=== PATIENT | female | born 1955 | race Caucasian/White ===

== ENCOUNTER 2023-07-31 06:01 | Day surgery (SDC) | payer MEDICARE, BC, SELFPAY ==
[2023-07-31] VITALS (17 sets, daily range): BP systolic 79–120; BP diastolic 48–81; PULSE 53–65; RESP 10–18; TEMP 36.2–36.4; O2SAT 93–97; BMI 30.4
[2023-07-31] MEDS: CELECOXIB 200 MG CAPSULE PO (06:24)
[2023-07-31] MEDS: OXYCODONE (CR) 10 MG TAB.ER.12H PO (06:24)
[2023-07-31] MEDS: ACETAMINOPHEN 500 MG TABLET 1000 MG PO (06:24)
[2023-07-31] MEDS: LACTATED RINGERS 1000 ML 1,000 ML 100 ML IV ×2 (06:25→08:16)
--- NOTE | 2023-07-31 07:05 | SUR.PREOP ---
TIME?OUT:?05 PT/RN/MDA?VERIFICATION?OF?SURGICAL?SITE,?PROCEDURE,?AND?CONSENT OBTAINED?PRIOR?TO?INVASIVE?PROCEDURE.
[2023-07-31] MEDS: CEFAZOLIN 2 GM INJ IVP (07:30)
[2023-07-31] MEDS: MIDAZOLAM HCL 1 MG/ML inj IVP (07:30)
[2023-07-31] MEDS: fentaNYL 100 MCG/2 ML inj IVP (07:30)
[2023-07-31] MEDS: TRANEXAMIC ACID 100 MG/ML INJ 1000 MG IV (07:32)
--- NOTE | 2023-07-31 07:52 | SUR.OPER ---
PATIENT QUESTIONS ANSWERED SATISFACTORILY PREOPERATIVELY.? PATIENT BROUGHT TO OR #2 PER CART AFTER ADMINISTRATION OF A BLOCK.? Patient positioned supine on OR #2 bed.? The perioperative?team supported arms bilaterally on arm boards.? Final approval of positioning by surgeon.?
--- NOTE | 2023-07-31 08:32 | CRLHL7_ITS ---
For Patients: As a result of the Cures Act, medical imaging exams and procedure reports are released immediately into your electronic medical record. You may view this report before your referring provider. If you have questions, please contact your health care provider. INDICATION : Follow-up a left total knee arthroplasty. TECHNIQUE: Two portable postoperative images of the left knee. FINDINGS: Left knee arthroplasty. Patellar resurfacing. The components are adequately aligned and well seated. Air within the joint space and soft tissues related to the surgery. IMPRESSION: Postsurgical change from a left total knee arthroplasty. The components are adequately aligned and well seated. Dictated by Raheem Marks MD @ 07/31/2023 9:35:23 AM (Electronically Signed)
--- NOTE | 2023-07-31 08:35 | P.ORPRC_ITS ---
Procedure Note Date of procedure: 07/31/23 Procedure: PREOPERATIVE DIAGNOSIS: Left knee osteoarthritis POSTOPERATIVE DIAGNOSIS: Left knee osteoarthritis NAME OF OPERATION: Left total knee arthroplasty SURGEON: Taurus Joseph MD BI APPLICATION DEVELOPER: LAURI Rai ANESTHESIA: Spinal ESTIMATED BLOOD LOSS: 0 mL COMPLICATIONS: None SPECIMENS: None DRAINS: None PREOPERATIVE ANTIBIOTICS: Ancef 2 grams IMPLANTS: 1. J&J Attune # 6 narrow posterior stabilized femur 2. # 5 fixed-bearing tibia 3. # 6 posterior stabilized, 5 mm fixed-bearing polyethylene 4. 38 patella INDICATIONS: The patient is a 68-year-old with a longstanding history of severe, unrelenting left knee pain secondary to end-stage (grade IV) left knee osteoarthritis. Despite appropriate nonoperative management, including activity modification, anti-inflammatories, uwhy-xov-etzklnw pain medication, bracing, physical therapy, and injections they continue to have pain and disability. Operative intervention was offered. The risks, benefits and expected outcomes were discussed in detail. These includ ed but were not limited to: Infection, bleeding, injury to blood vessel or nerve, venous thromboembolism. All questions were answered to their satisfaction. Use of an administrative sales assistant was necessary throughout the case for patient positioning and safety, soft tissue retraction, and closure. PROCEDURE: Spinal anesthesia was administered. The patient was placed supine on the operating table. The administrative sales assistant made sure the patient was positioned appropriately. The lower extremity was prepped and draped in the usual sterile fashion. The limb was exsanguinated with the Amrit bandage. The pneumatic tourniquet was inflated to 300 mmHg. A standard anterior incision was made with the knee in flexion. Subcutaneous dissection was sharply taken through fascial layer #1. Full-thickness medial and lateral flaps were elevated. The administrative sales assistant retracted the soft tissues and protected them throughout the case. A standard medial parapatellar approach was made. The patella was everted. The infrapatellar fat pad was preserved. The menisci and cruciate ligaments were sharply d?brided. Marginal osteophytes were d?brided with the rongeur. The drill was used to penetrate the femoral canal. The canal was aspirated and irrigated with pulse lavage. The intramedullary femoral guide was placed for a 5-degree valgus cut, removing 10 mm off the distal femur. The saw was used to make the cut. Whitesides line and the trans epicondylar axis were marked. The femoral sizing guide was pinned onto the distal femur. Three degrees of external rotation nicely parallels the transepicondylar axis. Pins were placed for posterior referencing. The four-in-one cutting guide was pinned onto the distal femur. The anterior, posterior, and chamfer cuts were made. The administrative sales assistant protected the collateral ligaments. The box cutting guide was pinned. The box cuts were made. The boxed trial was placed and was an excellent fit. Drill holes for the lugs were made. Attention was then turned to the proximal tibia. The extramedullary tibial guide was placed for a neutral varus/valgus cut with 5 degrees of posterior slope, removing 1 mm based off the medial tibial surface. The administrative sales assistant protected the collateral ligaments and the neurovascular bundle. The saw was used to make the cut. Trial components were placed. The knee was nicely balanced in both flexion and extension. The trial components were removed. The tray was placed in appropriate rotation, parallel to our tibial cutting pins. It was pinned by the administrative sales assistant and the drill and the punch were used. The tray was removed. The punch was used again. We placed a bone plug in the femoral canal. Attention was then turned to the patella. [place] patellar thickness was 22 mm. The lobster claw resection guide was used with the 7.5 mm david. The saw was used to make the cut. Drill holes were made by the administrative sales assistant. The trial was placed and was an excellent fit. Cancellous surfaces were irrigated with pulse lavage and thoroughly dried by the administrative sales assistant. We cemented the tibial component, then the femoral component. We impacted the 5 mm polyethylene onto the tibial tray. The knee was brought into full extension. We then cemented the patellar component. Excessive cement was removed. The cement was allowed to harden. The knee was taken through a range of motion and was found to be nicely balanced in both flexion and extension. The patella tracks centrally. The administrative sales assistant did a three minute dilute Betadine solution soak. The administrative sales assistant irrigated the wound with 3 liters of normal saline via pulse lavage. The a ssistant reapproximated the extensor mechanism with #1 Vicryl in an interrupted [id number]-uy-ixihz fashion. The administrative sales assistant then ran the extensor mechanism with a #1 PDO Stratafix. The administrative sales assistant closed the subcutaneous tissues with a 3-0 Stratafix and the skin with a running 3-0 Stratafix in a subcuticular fashion. Glue was used to seal the skin. The administrative sales assistant placed a dry dressing, MARY CARMEN stocking, and Polar Care. Sponge and needle counts were correct x2. The patient tolerated the procedure well. There were no apparent complications. They were carefully transferred to the hospital bed and taken to the postanesthesia care unit in satisfactory condition. PLAN: The patient will be mobilized with physical therapy. Aspirin will be used for DVT prophylaxis. They will be discharged to home once medically appropriate.
--- NOTE | 2023-07-31 09:15 | W.ANESCHARGE ---
Anesthesia Charges Start Date/Time Anesthesia Start Date: 07/31/23 Anesthesia Start Time: 07:19 Stop Date/Time Anesthesia Stop Date: 07/31/23 Anesthesia Stop Time: 09:14
--- NOTE | 2023-07-31 09:54 | P.NB_ITS ---
Nerve Block Nerve Block Time Seen by Provider: 07:07 Date Seen: 07/31/23 Type of block requested by surgeon for post-operative analgesia: adductor canal Side: left Time out performed: Yes Verification of patient name: Yes Verification of date of : Yes Site marking: site marked Name of person performing procedure: Larry Continuous monitoring Was continuous monitoring of O2 sat, B/P, monitoring manager, recorded every 15 minutes?: Yes Procedure Checklist: sterile prep, needles and gloves Ultrasound guided. Images saved: Yes Medications given in 5ml increments after negative aspiration: Ropivicaine %: 0.5 mL: 20 Needle gauge: 20 Decadron (mg): 10 Precedex (mcg): 25 Patient tolerated procedure well: Yes Additional comments: Needle noted adjacent to nerve Block Charges Block Charge (with Pro Fee): Femoral Nerve Use of Ultrasound Machine for Block: Yes- US Guidance/pain block
--- NOTE | 2023-07-31 09:54 | W.PM.NB ---
Nerve Block Nerve Block Time Seen by Provider: 07:07 Date Seen: 07/31/23 Type of block requested by surgeon for post-operative analgesia: geniculars Side: left Time out performed: Yes Verification of patient name: Yes Verification of date of : Yes Site marking: site marked Name of person performing procedure: Larry Continuous monitoring Was continuous monitoring of O2 sat, B/P, director of cardiac cath lab, recorded every 15 minutes?: Yes Procedure Checklist: sterile prep, needles and gloves Medications given in 5ml increments after negative aspiration: Ropivicaine %: 0.5 mL: 9 Needle gauge: 25 Patient tolerated procedure well: Yes Block Charges Block Charge (with Pro Fee): Genicular Nerve Block Use of Ultrasound Machine for Block: No
--- NOTE | 2023-07-31 09:55 | W.ANESCHARGE ---
Anesthesia Charges Start Date/Time Anesthesia Start Date: 07/31/23 Anesthesia Start Time: 07:19 Stop Date/Time Anesthesia Stop Date: 07/31/23 Anesthesia Stop Time: 09:14
[2023-07-31] MEDS: OXYCODONE 5 MG TABLET PO (10:30)
--- NOTE | 2023-07-31 11:13 | SUR.PHASEII ---
PATIENT REQUESTED 1 PAIN PILL AT 10:30. STATES SHE IS COMFORTABLE NOW AND WILL NAP FOR A WHILE BEFORE THERAPY. SHE HAS EATEN TOAST AND YOGURT AND TOLERATING WELL.
--- NOTE | 2023-07-31 12:52 | SUR.PHASEII ---
PATIENT DID GREAT WITH A TRANSFER TO WHEELCHAIR. TRANSFERED TO TOILET WITHOUT ANY PROBLEM. WILL BRING TO THERAPY AT THIS TIME.
--- NOTE | 2023-07-31 13:24 | SUR.PHASEII ---
Patient back from PT. PT states patient did well and she's cleared to go home.
== END 2023-07-31 13:26 | disposition home or self-care (01) ==
PROVIDERS: PCP Internal Medicine; Visit Provider Orthopaedic Surgery
PROC: (CPT 27447; principal; 2023-07-31 07:30)
DX: M17.12 Unilateral primary osteoarthritis, left knee (principal); G89.18 Other acute postprocedural pain
CPT/HCPCS: 27447; 01402; 64447; 64454; 73560; 76942; 97110; 97116; 97161; A9270; C1776; J0690; J1100; J2250; J2405; J2704; J3010; J7120

== ENCOUNTER 2024-08-25 07:39 | Outpatient (RCR) | payer MEDICARE, BC, SELFPAY ==
--- NOTE | 2024-08-25 09:04 | PT.OPEX ---
PT [place] [facility] Eval PT [facility] Outpatient Eval Start: 08/25/24 07:47 Freq: Status: Active Protocol: Document 08/25/24 07:48 ENM (Rec: 08/25/24 08:40 ENM [id number]) E-signed By Shasta Milner, DPT Physical Therapy Outpatient Evaluation Insurance Information Recert Due Date 11/23/24 Insurance Name Medicare B Medical Diagnosis unilateral osteoarthritis, right hip presence of artificial right hip joint right STEPHAN 09/11 Treating Diagnosis right hip pain, decreased hip ROM, muscle weakness, impaired gait Imaging Report Information These show Tonnis grade 3 bilat hip osteoarthritis with a ihmd-ob-qath medial wear pattern. There is subchondral sclerosis and subchondral cysts on the femoral side, circumferential osteophytic spurring. Referring MD Joseph Subjective Subjective Patient presents to PT for pre -op evaluation prior to R STEPHAN on 09/11. First the pain started on the side of the hip that has since subsided but she continues to have significant groin pain after sitting for longer periods of time. Was doing water aerobics and leg press at the gym but they stopped due to the hip pains. The pain can be up to a 10. Had her left knee replaced on 07/31/2023. Also had her right the knee replaced multiple years ago. Does still have some issues with the lateral side of her knee on the left side. For full information on house set up see pre-op flowsheet. Pain Comments can be up to a 10 Date of Surgery (If applicable) 09/11/24 Current Work Status Retired Objective Other/Pertinent Objective AROM L knee 0-3-128 R knee 1-0-123 hip flexion WFL with discomfort B hip IR L 25% limited R 25% limited + for pain hip ER L WFL R 25% limited + for pain strength: hip flexors 4/5 B knee extensors L 4-/5 R 4/5 gait/balance: Patient ambulates with right trunk lean, decreased knee extension B, decreased hip extension B, increased pelvic movement in transverse plane Assessment Assessment/Impression Patient is a 69 year old female presenting for pre op visit prior to R STEPHAN on DOS . They have had both of their knees replaced in the last 5 years. Noted gradual increase in right hip pain with increased activity and sitting for longer periods of time. They have necessary assistive devices already at home from previous joint replacements. and son are able to care for her after surgery. Upon assessment patient displays decreased hip ROM, decreased proximal hip strength, hip flexor tightness and impaired gait pattern. Zaynab will be seen post operatively at [facility] PT to reassess impairments that will be addressed with skilled care. They would greatly benefit from skilled PT to progress strength, ROM and ambulation post operatively for return to [facility]. Primary Functional Limitations increasing activity, sitting Plan of Care Rehabilitation Potential Good Physical Therapy Goals After pre-op visit: ? Patient will be independent with HEP ? Patient will verbalize knowledge of stair navigation and proper sequencing ? Patient will have knowledge on home adaptations and use of assistive devices post operatively ? Patient will have knowledge of edema management Coordination/Communication With Referral Source Treatment Plan/Direct Interventions Gait Training,Ice/Cold/ Vasopneumatic,Joint Mobilization,Manual Therapy, Neuromuscular Re-ed,Self-Care/ Home Management,Therapeutic Activities,Therapeutic Exercises Frequency/Duration 1x pre-op visit will be doing post op rehab at [facility] Patient Will Be Discharged From Therapy Completion of LTG(s), Independent w/HEP Evaluation Billing Untimed Code Treatment Minutes 19 Complexity Low Certification Information Initial Certification Date 08/25/24 Ending Certification Date 11/23/24 Provider Signature Required Yes Provider Signature Shows Agreement With POC & Medical Necessity Physician NPI Number Write NPI# Here Physician Comment/Change : Physician Signature & Date Requested Please Sign/Date Here
== END 2024-12-23 23:59 | disposition home or self-care (01) ==
PROVIDERS: PCP Internal Medicine; Visit Provider Orthopaedic Surgery
DX: M16.11 Unilateral primary osteoarthritis, right hip (principal); Z96.641 Presence of right artificial hip joint; Z74.09 Other reduced mobility; Z51.89 Encounter for other specified aftercare
CPT/HCPCS: 97110; 97161

== ENCOUNTER 2024-09-11 05:59 | Day surgery (SDC) | payer MEDICARE, BC, SELFPAY ==
[2024-09-11] VITALS (21 sets, daily range): BP systolic 89–130; BP diastolic 58–89; PULSE 52–74; RESP 16; TEMP 36.1–36.6; O2SAT 94–98; BMI 31.1
--- OUTSIDE RECORDS SUMMARY | 2024-09-11 06:02 | XMS_ITS | Clinical Summary ---
Author Organization [facility] Address [place], [place] [address] Care Team Providers Care Apartment Maintenance Name Role Phone Emma Moffett MD Primary Care Provider [phone] Allergies No known active allergies Medications naproxen (ALEVE) 220 mg tabletIndication s:Hip pain, right Take 1 Tablet (220 mg) by mouth 2 times daily if needed for Pain. 0 11/29/2022 Active Active Problems Problem Noted Date Diagnosed Date Osteopenia of multiple sites 07/19/2024 Overview (07/19/2024): 11/2022 DXA scan: lowest T-score -1.9 Elevated hemoglobin 07/17/2023 Primary osteoarthritis involving multiple joints 11/29/2022 Prediabetes 11/29/2022 Overview (07/16/2023): HEMOGLOBIN A1C SCREENING (%) Date Value 11/29/2022 6.3 Hx of colonic polyps Resolved Problems Problem Noted Date Diagnosed Date Resolved Date Hyperplastic colon polyp 03/06/2012 Symptomatic states associate d with artificial menopause 02/27/2007 11/14/2022 Overview (02/27/2007): Perimenopause with intermittent menometrorrhagia Encounters Date Type Department Care Team Description 08/27/2024 1:20 PM INTERNET SITE DESIGNER Office Visit [facility] [address] [facility] [place] [id number] Emma Moffett MD Pre-Op Exam (DOS: 09/11/2024) 08/27/2024 Travel 07/16/2024 10:15 AM INTERNET SITE DESIGNER Ancillary Procedure [facility] [address] [place] [address] 07/16/2024 8:20 AM INTERNET SITE DESIGNER Office Visit [facility] [address] [place] [address] Emma Moffett MD Medicare ANNUAL (subsequent) Visit 07/16/2024 Travel 06/26/2024 1:28 PM INTERNET SITE DESIGNER - 06/26/2024 11:59 PM INTERNET SITE DESIGNER Hospital Encounter [facility] [address] [place] [address] Visit for screening mammogram 06/26/2024 Travel from Last 3 Months Immunizations Name Administration Dates Next Due Hepatitis B (Adult) 02/24/1999,09/22/1998,1998 Pneumococcal Conj 20-valent (Prevnar 20) 023 Td (Age >=7 Years) 11/24/1996 Td, Preservative Free (age >= 7 Years) 7 Tdap 07/17/2023,03/06/2012 Family History Medical History Relation Name Comments Cancer Father lymphoma Cancer-breast Maternal Grandmother Other Mother scleroderma Cancer-colon Paternal Uncle Diabetes Sister 2 Relation Name Status Comments Father Maternal Grandmother Mother Paternal Uncle Sister 1 Alive Sister 2 Alive Son Alive Social History Tobacco Use Types Packs/Day Years Used Date Smoking Tobacco: Never Smokeless Tobacco: Never Tobacco Cessation:Counseling Given: No Alcohol Use Standard Drinks/Week Comments No 0 (1 standard drink = 0.6 oz pur e alcohol) PHQ-2 Answer Date Recorded PHQ-2 TOTAL SCORE 1 07/16/2024 Social Connections Answer Date Recorded Frequency of Communication with Friends and Fami ly Not on file 08/13/2021 Financial Resource Strain Answer Date R ecorded Difficulty of Paying Living Expenses Not on file 08/13/2021 Difficulty of Paying Living Expenses Not on file 08/13/2021 Comments No Sex and Gender Information Value Date Recorded Sex Assigned at Not on file Legal Sex Female 5:23 AM INTERNET SITE DESIGNER Gender Identity Not on file Sexual Orientation Not on file 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 Not on file Not on file Obstetrics History Para Term AB IAB SAB Ectopic Multiple Livin g Live Births 1 1 1 Date Outcome GA Total Labor Labor/2nd/3rd Weight Sex Type Anes PTL Riana A1 A5 Name Clin Para Comments Vaginal Last Filed Vital Signs Vital Sign Reading Time Taken Comments Blood Pressure 110/72 08/27/2024 1:27 PM INTERNET SITE DESIGNER Pulse 60 08/27/2024 1:27 PM INTERNET SITE DESIGNER Temperature 36.6 C (97.8 F) 07/16/2023 8:11 AM INTERNET SITE DESIGNER Respiratory Rate 20 08/30/2020 3:01 PM INTERNET SITE DESIGNER Oxygen Saturation 99% 07/16/2023 8:11 AM INTERNET SITE DESIGNER Inhaled Oxygen Concentration - - Weight 86.2 kg (190 lb) 08/27/2024 1:27 PM INTERNET SITE DESIGNER Height 166.5 cm (5' 5.55) 08/27/2024 1:27 PM CS T Body Mass Index 31.09 08/27/2024 1:27 PM INTERNET SITE DESIGNER Plan of Treatment Health Maintenance Due Date Last Done Comments Zoster (shingles) series for age 50+ (1 of 2) 02/03/2006 RSV vaccine for adults or (1 - Risk 60-74 years 1-dose series) 2016 Colonoscopy through age 75 09/28/202209/28, 06/13/2012, 06/13/2012, Additional history exists COVID-19 vaccine series ( season) 2024 06/16/2021, 11/04/2020, 10/06/2020 Influenza for age 65+ 04/13/2024 Mammogram for age 45-75 06/26/2025 06/26/20 24, 12/05/2022, 09/27/2020, Additional history exists Depression screening for age 12+ 07/16/2025 07/16/2024, 11/29/2022, 11/29/2022, Additional history exists Medicare Wellness for age 65+ 07/17/2025 07/16/2024, 11/29/2022 BMI (ht and wt on same day) for age 18+ 08/27/2025 08/27/2024, 07/16/2024, 07/16/2023, Additional history exists Lipids for age 45-75 07/16/2029 07/16/2024, 08/30/2020, 10/03/2018, Additional history exists Tetanus booster 07/17/2033 07/17/2023, 02/11, 02/25/2007, Additional history exists Hepatitis C screening for ag e 18-79 Completed 08/30/2020 DEXA/DXA scan for age 65+ Completed 11/29/2022 Pneumococcal series for age 50+ Completed Tdap Completed 07/17/2023, 03/06/2012 Procedures Procedure Name Priority Date/Time Associated Diagnosis Comments SCAN-ELECTROCARDIOGRA M EKG 08/27/2024 12:00 AM INTERNET SITE DESIGNER XR HIP 2 OR 3 VIEWS W PELVIS RIGHT Routine 07/16/2024 10:31 AM INTERNET SITE DESIGNER Acute thigh pain, right CBC WITH AUTO DIFFERENTIAL Routine 07/16/2024 10:02 AM INTERNET SITE DESIGNER Elevated hemoglobin (HC) BASIC METABOLIC PANEL Routine 07/16/2024 10:02 AM INTERNET SITE DESIGNER Prediabetes LIPID PANEL W REFLEX MEASURED LDL Routine 07/16/2024 10:02 AM INTERNET SITE DESIGNER Elevated cholesterol C-REACTIVE PROTEIN Routine 07/16/2024 10 :02 AM INTERNET SITE DESIGNER Chronic pain of left knee XR MAMMO DONNA BILAT SCREEN Routine 06/26/2024 1:51 PM INTERNET SITE DESIGNER Visit for screening mammogram XR DXA BONE DENSITY 2 SITES AXIAL Routine 11/29/2022 9:53 AM CDT Postmenopausal ANTI HCV Routine 08/30/2020 4:22 PM INTERNET SITE DESIGNER Encounter for hepatitis C screening test for low risk patient COLONOSCOPY 09/28/2017 11:29 AM INTERNET SITE DESIGNER from Last 3 Months or Most Recently Relevant to Health Maintenance Results * SCAN-ELECTROCARDIOGRAM EKG (08/27/2024 12:00 AM INTERNET SITE DESIGNER) us Scanner OTHER Final Result * XR HIP 2 OR 3 VIEWS W PELVIS RIGHT (07/16/2024 10:31 AM INTERNET SITE DESIGNER) Anatomical Region Laterality Modality HIPS, HIPR, Pelvis Computed Radi ography 07/16/2024 10:5 4 AM INTERNET SITE DESIGNER Impressions 07/16/2024 10:54 AM INTERNET SITE DESIGNER Moderate right hip osteoarthritis progressive when compared to the study of 11/29/2022. No acute abnormality. Dictated by Nam Burnham MD @ 07/16/2024 10:54:39 AM (Electronically Signed) Narrative 07/16/2024 10:54 AM INTERNET SITE DESIGNER For Patients: As a result of the Cures Act, medical imaging exams and procedure reports are released immediately into your electronic medical record. You may view this report before your referring provider. If you have questions, please contact your health care provider. INDICATION: Acute right thigh pain. TECHNIQUE: AP pelvis and right hip, 3 views. FINDINGS: Joint space narrowing. Marginal articular spurring. No fracture or dislocation. No lytic bone destruction. Moderate arthropathy left hip. Phleboliths low pelvis. Procedure Note Ntiin Burnham MD - 07/16/2024 For Patients: As a result of the Cures Act, medical imagingexams and procedure reports are released immediately into your electronicmedical record. You may view this report before your referring provider.If you have questions, please contact your health care provider. INDICATION: Acute right thigh pain. TECHNIQUE: AP pelvis and right hip, 3 views. FINDINGS: Joint space narrowing. Marginal articular spurring. No fracture ordislocation. No lytic bone destruction. Moderate arthropathy left hip. Phleboliths low pelvis. IMPRESSION: Moderate right hip osteoarthritis progressive when compared to the studyof 11/29/2022. No acute abnormality. Dictated by Nam Burnham MD @ 07/16/2024 10:54:39 AM (Electronically Signed) Emma Moffett MD GENERAL IMAGING Final Res ult * (ABNORMAL) LIPID PANEL W REFLEX MEASURED LDL (07/16/2024 10:02 AM INTERNET SITE DESIGNER) CHOLESTEROL, TOTAL 235(H) <200 mg/dL [facility] HDL CHOLESTEROL 82 > OR = 50 mg/dL [facility] TRIGLYCERIDES 119 <150 mg/dL [facility] LDL-CHOLESTEROL 130(H) mg/dL (calc) [facility] Comment: Reference range: <100 Desirable range <100 mg/dL for primary prevention; <70 mg/dL for patients with CHD or diabetic patients with > or = 2 CHD risk factors. LDL-C is now calculated using the Brent calculation, which is a validated novel method providing better accuracy than the Friedewald equation in the estimation of LDL-C. Amrit SS et al. ROMÁN. 2013;310(19): 2343-5091 (http://education.OUYA/faq/NOJ347) CHOL/HDLC RATIO 2.9 <5.0 (calc) [facility] NON HDL CHOLESTEROL 153(H) <130 mg/dL (calc) [facility] Comment: For patients with diabetes plus 1 major ASCVD risk factor, treating to a non-HDL-C goal of <100 mg/dL (LDL-C of <70 mg/dL) is considered a therapeutic option. Blood BLOOD SPECIMEN / Unknown 07/16/2024 10:02 AM INTERNET SITE DESIGNER 07/16/2024 10:02 AM INTERNET SITE DESIGNER Narrative [facility] - 07/17/2024 4:19 AM INTERNET SITE DESIGNER FASTING:YES FASTING: YES Emma Moffett MD CHEMISTRY Final Res ult [facility] [address] [place] [address], [facility] [address] [place] [address] * C-REACTIVE PROTEIN (07/16/2024 10:02 AM INTERNET SITE DESIGNER) Pathologist [facility] C-REACTIVE PROTEIN 3.4 <8.0 mg/L [facility] Blood BLOOD SPECIMEN / Unknown 07/16/2024 10:02 AM INTERNET SITE DESIGNER 07/16/2024 10:02 AM INTERNET SITE DESIGNER Narrative [facility] - 07/17/2024 12:46 PM INTERNET SITE DESIGNER FASTING:YES FASTING: YES Emma Moffett MD CHEMISTRY Final Res ult [facility] [address] [place] [address], [facility] [address] [place] [address] * (ABNORMAL) CBC AND DIFFERENTIAL (07/16/2024 10:02 AM INTERNET SITE DESIGNER) [facility] WHITE BLOOD CELL COUNT 6.4 3.8 - 10.8 Thousand/u L [facility] RED BLOOD CELL COUNT 5.60(H) 3.80 - 5.10 Million/uL [facility] HEMOGLOBIN 16.5(H) 11.7 - 15.5 g/dL [facility] HEMATOCRIT 50.6(H) 35.0 - 45.0 % [facility] MCV 90.4 80.0 - 100.0 fL [facility] MCH 29.5 27.0 - 33.0 pg [facility] MCHC 32.6 32.0 - 36.0 g/dL [facility] Comment: For adults, a slight decrease in the calculated MCHC value (in the range of 30 to 32 g/dL) is most likely not clinically significant; however, it should be interpreted with caution in correlation with other red cell parameters and the patient's clinical condition. RDW 13.0 11.0 - 15.0 % [facility] PLATELET COUNT 314 140 - 400 Thousand/u L [facility] MPV 10.7 7.5 - 12.5 fL [facility] ABSOLUTE NEUTROPHILS 4,013 1,500 - 7,800 cells/uL [facility] ABSOLUTE LYMPHOCYTES 1,741 850 - 3,900 cells/uL [facility] ABSOLUTE MONOCYTES 582 200 - 950 cells/uL [facility] ABSOLUTE EOSINOPHILS 32 15 - 500 cells/uL [facility] ABSOLUTE BASOPHILS 32 0 - 200 cells/uL [facility] NEUTROPHILS 62.7 % [facility] LYMPHOCYTES 27.2 % [facility] MONOCYTES 9.1 % [facility] EOSINOPHILS 0.5 % [facility] BASOPHILS 0.5 % [facility] Blood BLOOD SPECIMEN / Unknown 07/16/2024 10:02 AM INTERNET SITE DESIGNER 07/16/2024 10:02 AM INTERNET SITE DESIGNER Narrative [facility] - 07/17/2024 2:39 AM INTERNET SITE DESIGNER FASTING:YES FASTING: YES Emma Moffett MD HEMATOLOGY Final Res ult [facility] [address] [place] [address], [facility] [address] [place] [address] * (ABNORMAL) BASIC METABOLIC PANEL (07/16/2024 10:02 AM INTERNET SITE DESIGNER) [facility] GLUCOSE 112(H) 65 - 99 mg/dL [facility] Comment: Fasting reference interval For someone without known diabetes, a glucose value between 100 and 125 mg/dL is consistent with prediabetes and should be confirmed with a follow-up test. UREA NITROGEN (BUN) 17 7 - 25 mg/dL [facility] CREATININE 0.89 0.50 - 1.05 mg/dL [facility] EGFR 71 > OR = 60 mL/min/1. 73m2 [facility] BUN/CREATININE RATIO SEE NOTE: 6 - 22 (calc) [facility] Comment: Not Reported: BUN and Creatinine are within reference range. SODIUM 139 135 - 146 mmol/L [facility] POTASSIUM 4.3 3.5 - 5.3 mmol/L [facility] CHLORIDE 102 98 - 110 mmol/L [facility] CARBON DIOXIDE 27 20 - 32 mmol/L [facility] ELECTROLYTE BALANCE 10 7 - 17 mmol/L (calc) [facility] CALCIUM 9.7 8.6 - 10.4 mg/dL [facility] Blood BLOOD SPECIMEN / Unknown 07/16/2024 10:02 AM INTERNET SITE DESIGNER 07/16/2024 10:02 AM INTERNET SITE DESIGNER Narrative [facility] - 07/17/2024 4:19 AM INTERNET SITE DESIGNER FASTING:YES FASTING: YES us Emma Moffett MD CHEMISTRY Final Res ult [facility] [address] [place] [address], [facility] [address] [place] [address] * XR MAMMO DONNA BILAT SCREEN (06/26/2024 1:51 PM INTERNET SITE DESIGNER) Anatomical Region Laterality Modality BREASTS, Breast Left, Breast Right Bilateral Mammography Impressions 06/30/2024 7:38 AM INTERNET SITE DESIGNER There is no radiographic evidence for malignancy. Recommend annual mammograms. MAMMOGRAM ASSESSMENT: ACR 1 Negative PATIENTS: You will also receive a letter with your examination results in an easy to read format. If you have questions about your results, please contact your referring provider. Narrative 06/30/2024 7:38 AM INTERNET SITE DESIGNER For Patients: As a result of the Century Cures Act, medical imaging exams and procedure reports are released immediately into your electronic medical record. You may view this report before your referring provider. If you have questions, please contact your health care provider. XR MAMMO DONNA BILAT SCREEN [[id number]] CLINICAL HISTORY: This is an asymptomatic 69 y.o. patient. INDICATION FOR EXAM: Mammogram Screening. TECHNIQUE: CC & MLO views were obtained. This study was evaluated with the assistance of Computer-Aided Detection. Breast Tomosynthesis was used in interpretation. COMPARISON FILM: Yes 12/05/22 [facility] FINDINGS: There are scattered areas of fibroglandular density. There are no dominant masses, suspicious micro calcifications or areas of architectural distortion. Emma Moffett MD MAMMO Final Res ult * (ABNORMAL) XR DXA BONE DENSITY 2 SITES AXIAL (11/29/2022 9:53 AM CDT) Anatomical Region Laterality Modality Spine, HIPS, HIPL, HIPR Computed Radiography Impressions 11/30/2022 1:49 PM CDT Osteopenia. Lowest T score -1.9. Risk of fracture is not elevated. RECOMMENDATIONS: The National Osteoporosis Foundation recommends pharmacologic treatment for patients with T-scores of -2.5 or less, patients with prior history of fragility fractures, or patients with 10-year probability of greater than 3% at hips or greater than 20% of suffering major osteoporotic fractures. Recommend continued optimization of calcium and vitamin D intake through dietary means and/or supplementation and regular exercise. Repeat scan recommended in 5 years. Narrative 11/30/2022 1:49 PM CDT For Patients: Results are automatically released to your [employer] account once available, in compliance with federal regulations. This means that you may see your results before your provider has had a chance to review them. Please allow 2-3 business days for your provider to comment on the results. XR DXA Bone Mineral Density (BMD) EXAM LOCATION: [address] [address] PATIENT NAME: Zaynab Hernandez DATE OF : 1955 EXAM DATE: 11/29/2022 REQUESTING PROVIDER: Emma Moffett MD GENDER AT : female HEIGHT: 5' 6 (11/29/2022) WEIGHT: 194 lb (11/29/2022) MENOPAUSAL STATUS: Postmenopausal RACE/ETHNICITY: White RISK FACTORS: none CURRENT MEDICATION FOR BONE LOSS: NONE INDICATION: Postmenopausal COMPARISON DATE(S): None DXA scans are compared to prior studies for a patient only when the two (or more) studies were performed on the same scanner. It is not possible to compare data generated on one scanner to data from another because there are not standards in DXA equipment. This applies even if the two scanners are made by the same sas statistical programmer. PROCEDURE: Dual-energy x-ray absorptiometry performed with routine technique. Reporting is completed in the form of a T-score. The T-score represents the standard deviation from peak bone mass based on young healthy adult. A Z-score is used for diagnosis in premenopausal women, and for men under the age of 50. FINDINGS: RESULT LUMBAR SPINE L1 - L4 BMD: 1.169 g/cm2 T-Score: - 0.1 RESULTS FEMUR Left femoral neck BMD: 0.831 g/cm2 T-Score: - 1.5 Right femoral neck BMD: 0.770 g/cm2 T-Score: - 1.9 Left hip BMD: 0.879 g/cm2 T-Score: - 1.0 Right hip BMD: 0.856 g/cm2 T-Score: - 1.2 WHO criteria: Normal: T-score at or above -1 SD Osteopenia: T-score between -1.1 and -2.4 SD Osteoporosis: T-score at or below -2.5 SD FRAX RISK CALCULATION (USED FOR OSTEOPENIA ONLY): 10-year probability of major osteoporotic fracture: 17%. 10-year probability of hip fracture: 2.6%. Emma Moffett MD DEXA Final Res ult * ANTI HCV (08/30/2020 4:22 PM INTERNET SITE DESIGNER) HEPATITIS C ANTIBODY Non-React heriberto Non-React heriberto 08/30/2020 10:33 PM INTERNET SITE DESIGNER [facility] [employer] [facility] Comment:Antibodies to HCV no t detected; does not exclude the possibility of exposure to HCV. Blood BLOOD SPECIMEN / Unknown Venipuncture / Unknown 08/30/2020 4:22 PM INTERNET SITE DESIGNER 08/30/2020 4:24 PM INTERNET SITE DESIGNER Mckayla Wilburn MD SEND OUTS Final Re sult [facility] [address] [place] [address], * COLONOSCOPY (09/28/2017 11:29 AM INTERNET SITE DESIGNER) 09/28/2017 11:2 9 AM INTERNET SITE DESIGNER Narrative Transcriptions Esau Correa DO - 09/28/2017 12:02 PM CST Patient Name: Zaynab Hernandez Procedure Date: 09/28/2017 Gender: Female Date of : 1955 Admit Type: Ambulatory Procedure: Colonoscopy Proceduralist: Esau Correa MD [facility] Indications/Pre-Op Diagnosis: High risk colon cancer surveillance:Personal history of colonic polyps, Last colonoscopy5 years ago Medications: Propofol per Anesthesia Procedure Description: The patient had risks, benefits and alternatives explained to andgave informed consent. The patient had a stable cardiopulmonary status and judged an adequate candidate for conscious sedation. The colonoscope was passed through the anus and advanced to thececum, identified by appendiceal orifice and ileocecal valve. Thecolonoscopy was performed without difficulty. The patient tolerated the procedure well. The quality of the bowel preparation was good. The ileocecal valve, appendiceal orifice, and rectum were photographed. Complications: No immediate complications. Estimated Blood Loss & Specimen: Estimated blood loss: none. Specimen collected - None Findings: Non-bleeding internal hemorrhoids were found during retroflexion. The hemorrhoids were moderate, medium-sized and Grade II (internal hemorrhoids that prolapse but reduce spontaneously). Impressions/Post-Op Diagnosis: - Non-bleeding internal hemorrhoids. - No specimens collected. Recommendation: - Discharge patient to home. - Patient has a contact number available for emergencies. The signsand symptoms of potential delayed complications were discussed with the patient. Return to normal activities tomorrow. Written discharge instructions were provided to the patient. - High fiber diet. - Continue present medications. - Repeat colonoscopy in 5 years for surveillance. Esau Correa MD 09/28/2017 12:02:00 PM This report has been signed electronically. Note Initiated On: 09/28/2017 11:29 AM us Esau Correa DO PROCEDURE ORD Fi nal Result from Last 3 Months or Most Recently Relevant to Health Maintenance Insurance MEDICARE PART B [place] ONLY MEDICARE PB ONLY [facility] MEDICARE [place] [address] [employer] Care Teams Apartment Maintenance Relationship Specialty Start Date End Date Emma Moffett MD [address] [place] [address] [place] [id number] PCP - General Internal Medicine 11/30/22
[2024-09-11] MEDS: SODIUM CHLORIDE 0.9 % (FLUSH) 10 ML SYRINGE IVF (06:15)
[2024-09-11] MEDS: LACTATED RINGERS 1000 ML 1,000 ML 100 ML IV ×2 (06:15→09:42)
[2024-09-11] MEDS: CELECOXIB 200 MG CAPSULE PO (06:30)
[2024-09-11] MEDS: OXYCODONE (CR) 10 MG TAB.ER.12H PO (06:30)
[2024-09-11] MEDS: ACETAMINOPHEN 500 MG TABLET 1000 MG PO (06:30)
[2024-09-11] MEDS: MIDAZOLAM HCL 1 MG/ML inj IVP (07:03)
[2024-09-11] MEDS: fentaNYL 100 MCG/2 ML inj IVP (07:03)
--- NOTE | 2024-09-11 07:09 | SUR.PREOP ---
TIME?OUT:?0703 PT/RN/MDA?VERIFICATION?OF?SURGICAL?SITE,?PROCEDURE,?AND?CONSENT OBTAINED?PRIOR?TO?INVASIVE?PROCEDURE.
[2024-09-11] MEDS: CEFAZOLIN 2 GM INJ IVP (07:40)
[2024-09-11] MEDS: TRANEXAMIC ACID 100 MG/ML INJ 1000 MG IV (07:40)
--- NOTE | 2024-09-11 07:56 | SUR.OPER ---
PATIENT QUESTIONS ANSWERED SATISFACTORILY PREOPERATIVELY. PATIENT BROUGHT TO OR #2 PER CART AFTER ADMINISTRATION OF A BLOCK. Patient positioned supine on OR #2 bed. The perioperative team supported arms bilaterally on arm boards. Final approval of positioning by surgeon.
--- NOTE | 2024-09-11 08:38 | PM.ORPRC ---
Procedure Note Date of procedure: 09/11/24 Procedure: PREOPERATIVE DIAGNOSIS: Right hip osteoarthritis POSTOPERATIVE DIAGNOSIS: Right hip osteoarthritis NAME OF OPERATION: Right total hip arthroplasty SURGEON: Taurus Joseph MD MEDICAL LABORATORY SCIENTIST: Barbara Lomas PA-C, LAURI Rai IMPLANTS: 1. [employer] [place] # 52 sector ingrowth cup 2. 36 x 52 +4 neutral polyethylene 3. Actis # 5 standard collared ingrowth stem 4. 36 + 1.5 ceramic femoral head ANESTHESIA: Spinal ESTIMATED BLOOD LOSS: 200 cc COMPLICATIONS: None SPECIMENS: None DRAINS: None PREOPERATIVE ANTIBIOTICS: Ancef 2 grams INDICATIONS: The patient is a 69-year-old with a longstanding history of severe, unrelenting right hip pain secondary to end-stage right hip osteoarthritis. Despite appropriate nonoperative management, including activity modification, use of an assist device, anti-inflammatories, [id number] pain medication, physical therapy and injections, they continue to have pain and disability. Operative intervention was offered. The risks, benefits and expected outcomes were discussed in detail. These included but were not limited to: Infection, bleeding, injury to blood vessel or nerve, venous thromboembolism. All questions were answered to their satisfaction. Use of an medical office assistant instructor was necessary throughout the case for patient positioning and safety, soft tissue retraction and closure. PROCEDURE: The patient was placed supine on the [place] table. General anesthesia was administered. The medical office assistant instructor made sure the patient was properly positioned. The right hip was prepped and draped in the usual sterile fashion. The image intensifier was brought in for a perfect AP pelvis and a perfect double tear drop AP view of each hip which were used for intraoperative templating with our fluoroscopic guide. An oblique incision was made 3 cm distal and 3 cm lateral to the anterior superior iliac spine. The medical office assistant instructor retracted the soft tissues to protect them. Subcutaneous dissection was taken with electrocautery to the superficial fascia. The fascia was divided in line with the incision. Blunt dissection was carried medially to the tensor fascia scout and sartorius interval. Deep dissection was carried with electrocautery. The circumflex vessels were cauterized and divided. The capsule was exposed and then divided in a T-fashion, tagged with #1 Ethibond sutures. Retractors were placed in the joint, held by the medical office assistant instructor. The corkscrew was placed in the femoral head. The neck cut was made in the subcapital region. We made a second neck cut more distal. The napkin ring of bone was removed. The femoral head was removed intact. Acetabular retractors were placed, held by the medical office assistant instructor. The labrum was sharply debrided. The capsule was released. The 43 mm reamer was used to the true medial wall. We then enlarged in 2 mm increments using the image intensifier for our reamer placement. We impacted the cup which had excellent purchase. We placed the polyethylene. Attention was then turned to the proximal femur. The limb was placed in 140 degrees of external rotation, maximum extension and adduction. A significant amount of time was spent releasing the capsule to allow us to deliver the femur into the wound and complete the femoral side safely. Retractors were held by the medical office assistant instructor throughout the femoral preparation. The box worker and canal finder were used. Broaches were used to a stable size. The calcar reamer was used. Trial components were placed. The hip was reduced and was found to be stable with appropriate soft tissue tension. Length and offset had been nicely restored using the image intensifier and our fluoroscopic guide. Trial components were removed. The stem was impacted. We placed the femoral head. Again, the hip was reduced and was found to be stable with appropriate soft tissue tension. Length and offset had been nicely restored. The medical office assistant instructor did a three minute dilute Betadine solution soak. The medical office assistant instructor irrigated the wound with 3 liters of normal saline via pulse lavage. The medical office assistant instructor repaired the anterior capsule with a #1 Vicryl and our previously placed Ethibond sutures. The medical office assistant instructor closed the fascia over the tensor fascia scout with a #1 PDO Stratafix, subcutaneous tissues with 2-0 Vicryl, skin with a running 3-0 Stratafix and glue. A dry dressing was applied by the medical office assistant instructor. Sponge and needle counts were correct x 2. The patient tolerated the procedure well; there were no apparent complications. They were awakened and extubated in the operating room, sent to the Post-Anesthesia Care Unit in satisfactory condition. PLAN: 1. The patient will be mobilized with physical therapy, weight-bearing as tolerates 2. Xarelto x 5 days then aspirin x 30 days will be used for DVT prophylaxis 3. The patient will be discharged once medically appropriate
--- NOTE | 2024-09-11 09:24 | W.ANESCHARGE ---
Anesthesia Charges Start Date/Time Anesthesia Start Date: 09/11/24 Anesthesia Start Time: 07:14 Stop Date/Time Anesthesia Stop Date: 09/11/24 Anesthesia Stop Time: 09:24 Coding CPT Codes CPT Codes: ANESTH HIP ARTHROPLASTY - 41847 ([id number]) P1 - NORMAL HEALTHY PATIENT, QK - PROCESS DESIGNER 2-4 CNCRNT ANEDonald PROC, QX - SECTION HAND HELPER SVJimena W/ MED DIRECTION
--- NOTE | 2024-09-11 09:42 | SUR.PHASEI ---
right hip xray completed in PACU
--- NOTE | 2024-09-11 10:05 | W.PM.NB ---
Nerve Block Nerve Block Time Seen by Provider: 07:04 Date Seen: 09/11/24 Type of block requested by surgeon for post-operative analgesia: HUBERT/LFCN Side: right Time out performed: Yes Verification of patient name: Yes Verification of date of : Yes Site marking: site marked Name of person performing procedure: Larry Continuous monitoring Was continuous monitoring of O2 sat, B/P, vehicle monitor technician, recorded every 15 minutes?: Yes Procedure Checklist: sterile prep, needles and gloves Ultrasound guided. Images saved: Yes Medications given in 5ml increments after negative aspiration: Ropivicaine %: 0.5 mL: 30 Needle gauge: 20 Precedex (mcg): 25 Patient tolerated procedure well: Yes Additional comments: Needle noted below psoas tendon needle noted adjacent to LFCN Block Charges Block Charge (with Pro Fee): Other Periph Nerve Block Use of Ultrasound Machine for Block: Yes- US Guidance/pain block
--- NOTE | 2024-09-11 10:06 | W.ANESCHARGE ---
Anesthesia Charges Start Date/Time Anesthesia Start Date: 09/11/24 Anesthesia Start Time: 07:14 Stop Date/Time Anesthesia Stop Date: 09/11/24 Anesthesia Stop Time: 09:24 Coding CPT Codes CPT Codes: ANESTH HIP ARTHROPLASTY - 65872 ([id number]) QK - HEATING AND VENTILATING DRAFTER 2-4 CNCRNT ANES PROC, QX - PATIENT ACCOUNT REPRESENTATIVE SVC W/ MD MED DIRECTION, P1 - NORMAL HEALTHY PATIENT
[2024-09-11] MEDS: LACTATED RINGERS 500 ML 500 ML 100 ML IV (11:00)
[2024-09-11] MEDS: OXYCODONE 5 MG TABLET PO (11:45)
--- NOTE | 2024-09-11 12:47 | SUR.PHASEII ---
Patient ambulated with walker with stand by assist to bathroom. Patient voided. Tolerating grilled cheese and yogurt for lunch. Patient states pain in right hip It's a 3, it's not painful I can just feel something was done
--- NOTE | 2024-09-11 13:06 | SUR.PHASEII ---
OT here at 1300.
== END 2024-09-11 14:00 | disposition home or self-care (01) ==
LOC: OR 06:01
PROVIDERS: PCP Internal Medicine; Visit Provider Orthopaedic Surgery
PROC: (CPT 27130; principal; 2024-09-11 07:15)
DX: M16.11 Unilateral primary osteoarthritis, right hip (principal); G89.18 Other acute postprocedural pain
CPT/HCPCS: 27130; 01214; 36415; 64450; 73501; 76000; 76942; 86850; 86900; 86901; 97116; 97161; 97165; 97530; A9270; C1776; J0690; J1100; J2250; J2405; J2704; J2795; J3010; J7120

== ENCOUNTER 2024-11-13 11:36 | Day surgery (SDC) | payer MEDICARE, BC, SELFPAY ==
[2024-11-13] VITALS (13 sets, daily range): BP systolic 86–150; BP diastolic 50–94; PULSE 52–70; RESP 10–16; TEMP 35.8–36.8; O2SAT 91–99; BMI 31.6
[2024-11-13] MEDS: LACTATED RINGERS 1000 ML 1,000 ML 100 ML IV ×2 (12:30→14:13)
[2024-11-13] MEDS: CEFAZOLIN 2 GM in 0.9 % SODIUM CHLORIDE Mini-bag 100 ML IVPB (12:56)
[2024-11-13] MEDS: BUPIVACAINE 0.25% 30 ML INJECTION (13:48)
--- NOTE | 2024-11-13 13:51 | P.ORPRC_ITS ---
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 She has had persistent lateral pain which has not responded well to an aggressive physical therapy program. Operative intervention was recommended. The risks, benefits and expected outcomes were discussed in detail. These included but were not limited to: Infection, bleeding, injury to blood vessel or nerve, venous thromboembolism. All questions were answered to their satisfaction. PROCEDURE: Spinal anesthesia was administered. The patient was placed supine on the operating room table. The left lower extremity was prepped and draped in the usual sterile fashion. The limb was exsanguinated with the Amrit bandage. The pneumatic tourniquet was inflated to 300 mmHg. A standard anterolateral portal was established. The arthroscope was introduced. The working portal was established anteromedially. Diagnostic arthroscopy was performed with findings as follows: The patellar component is intact with mild circumferential scarring surrounding it. Some scarring posterior to the quads tendon, but not what is seen typical with patellar clunk syndrome. The femoral component is normal, the tibial polyethylene is normal. The scarring posterior to the patellar tendon was debrided with the radiofrequency probe and shaver. A superolateral portal was placed. Then we aggressively debrided around the patellar component and posterior to the quads tendon with the shaver and radiofrequency probe. A superolateral portal was placed to aid in the debridement around the patella. There was a marked amount of scarring in the lateral gutter. This was aggressively debrided with the radiofrequency probe and shaver through the superolateral portal. There was some cement over the lateral side of the femoral component which was debrided with the bur. We aggressively searched for the osteophyte off of the lateral side of the tray and did not feel like we found anything impressive. We searched from anterolateral to posterolateral, along the polyethylene and tibial tray, aggressively debriding with the radiofrequency probe and shaver. Arthroscopic instruments were removed, the portal sites were closed with a 3-0 nylon. Portals were injected with 0.25% Marcaine without epinephrine. A dry dressing was applied, the tourniquet was released. Sponge and needle counts were correct x 2. The patient tolerated the procedure well. There were no apparent complications. They were carefully transferred to the hospital bed and taken to the postanesthesia care unit in satisfactory condition. PLAN: The patient will be discharged to home. They may weightbear as tolerates. Range of motion will be unrestricted. They will follow up in the office in 2 weeks for a wound check and suture removal.
--- NOTE | 2024-11-13 14:04 | P.ANES_ITS ---
Anesthesia Charges Start Date/Time Anesthesia Start Date: 11/13/24 Anesthesia Start Time: 12:27 Stop Date/Time Anesthesia Stop Date: 11/13/24 Anesthesia Stop Time: 14:03 Coding CPT Codes CPT Codes: ANESTH KNEE JOINT SURGERY - 47591 ([id number]) P1 - NORMAL HEALTHY PATIENT, QZ - STACKER OPERATOR SVC W/O COURSE DEVELOPER BY
--- NOTE | 2024-11-13 14:04 | W.ANESCHARGE ---
Anesthesia Charges Start Date/Time Anesthesia Start Date: 11/13/24 Anesthesia Start Time: 12:27 Stop Date/Time Anesthesia Stop Date: 11/13/24 Anesthesia Stop Time: 14:03 Coding CPT Codes CPT Codes: ANESTH KNEE JOINT SURGERY - 98590 ([id number]) P1 - NORMAL HEALTHY PATIENT, QZ - HEAD COUNSELOR SVC W/O EDUCATIONAL ASSISTANT TEACHER BY
[2024-11-13] MEDS: OXYCODONE 5 MG TABLET PO (14:55)
== END 2024-11-13 15:51 | disposition home or self-care (01) ==
LOC: OR 11:37
PROVIDERS: PCP Internal Medicine; Visit Provider Orthopaedic Surgery
PROC: (CPT 29877; principal; 2024-11-13 13:30)
DX: M76.32 Iliotibial band syndrome, left leg (principal); Z96.652 Presence of left artificial knee joint
CPT/HCPCS: 29877; 01400; A9270; J0665; J0690; J1100; J1885; J2250; J2405; J2704; J3010; J7120